=== PATIENT | female | born 1950 | race Caucasian/White ===

== ENCOUNTER → 2016-12-08 | Outpatient (CLI) | payer MEDICARE, OTHER ==
--- NOTE | 2016-12-09 08:12 | BD ---
EXAMINATION TYPE: MG DEXA axial skeleton. DATE OF EXAM: 12/08/2016 12:58 PM COMPARISON: DEXA bone scan report January 04, 2002. CLINICAL HISTORY: Postmenopausal female Height: 64.5 IN Weight: 176 LBS FRAX RISK QUESTIONS: Alcohol (3 or more units per day): NO Family History (Parent hip fracture): NO Glucocorticoids (More than 3mos): NO (Ex: prednisone, prednisolone, methylprednisolone, dexamethasone, and hydrocortisone). History of Fracture in Adulthood: NO Secondary Osteoporosis: 1. Type 1 Diabetes: NO 2. Hyperthyroidism: NO 3. Menopause before 45: NO 4. Malnutrition: NO 5. Chronic liver disease: NO Rheumatoid Arthritis: NO Current Tobacco Use: NO RISK FACTORS HISTORY OF: Active: YES Postmenopausal woman: AGE 47 MEDICATIONS: Thyroid Medications: YES Which medication: Levothyroxine How Lon YEARS Additional Medications: LEVOTHYROXINE, SIMVASTATIN, BLOOD PRESSURE MED EXAM MEASUREMENTS: Bone mineral densitometry was performed using the [employer] System. Bone mineral density as measured about the Lumbar spine is: ----- L1-L4(G/cm2): 1.402 T Score Values are as follows: ----- L2: 1.8 ----- L3: 2.6 ----- L4: 2.7 ----- L1-L4: 1.8 Bone mineral density has: Increased 11.2% since study of: 01/04/2002 Bone mineral density about the R hip (g/cm2): 0.958 Bone mineral density about the L hip (g/cm2): 0.974 T Score values are as follows: -----R Neck: -0.6 -----L Neck: -0.5 -----R Total: 0.3 -----L Total: 0.4 Bone mineral density has: Decreased -4.6% since study of: 01/04/2002 IMPRESSION: Normal (Values between +1 and -1 indicate normal bone mass). Consider repeating this study in 5 year s or sooner if there is some new clinical indication. NOTE: T-SCORE=SD OF THE YOUNG ADULT MEAN.
--- NOTE | 2016-12-09 11:14 | MM ---
Reason for exam: screening (asymptomatic). Last mammogram was performed 5 years and 11 months ago. History: Patient is postmenopausal. 3 cyst aspirations of the right breast. Physical Findings: A clinical breast exam by your physician is recommended on an annual basis and results should be correlated with mammographic findings. MG 3D Screening Mammo W/Cad Bilateral CC and MLO view(s) were taken. Prior study comparison: December 26, 2010, bilateral digital screening mammo w/CAD. The breast tissue is heterogeneously dense. This may lower the sensitivity of mammography. Finding: There are typically benign round calcifications in the right breast. There is no discrete abnormality. ASSESSMENT: Benign, BI-RAD 2 RECOMMENDATION: Routine screening mammogram of both breasts in 1 year.
== END | disposition home or self-care (01) ==
LOC: RADMAMWWP 12:51
PROVIDERS: ATTEND Internal Medicine Geriatric Medicine
DX: Z12.31 Encounter for screening mammogram for malignant neoplasm of breast (principal)
CPT/HCPCS: 77080; 77063; G0202

== ENCOUNTER → 2019-01-18 | Outpatient (CLI) | payer MEDICARE, OTHER ==
--- NOTE | 2019-01-19 13:31 | MM ---
Reason for exam: screening (asymptomatic). Last mammogram was performed 2 years and 1 month ago. History: Patient is postmenopausal. 3 cyst aspirations of the right breast. Physical Findings: A clinical breast exam by your physician is recommended on an annual basis and results should be correlated with mammographic findings. MG 3D Screening Mammo W/Cad Bilateral CC and MLO view(s) were taken. XCCM view(s) were taken of the right breast. Prior study comparison: December 08, 2016, bilateral MG 3d screening mammo w/cad. January 02, 2011, [facility] DIGITAL RIGHT MAMMOGRAM w/CAD. The breast tissue is heterogeneously dense. This may lower the sensitivity of mammography. Finding: There are typically benign calcifications in the right breast. No suspicious abnormality. No significant new finding when compared to prior studies. ASSESSMENT: Benign, BI-RAD 2 RECOMMENDATION: Routine screening mammogram of both breasts in 1 year.
== END | disposition home or self-care (01) ==
LOC: RADMAMWWP 10:44
PROVIDERS: ATTEND Internal Medicine Geriatric Medicine
DX: Z12.31 Encounter for screening mammogram for malignant neoplasm of breast (principal)
CPT/HCPCS: 77063; 77067

== ENCOUNTER → 2021-06-19 | Outpatient (CLI) | payer MEDICARE, OTHER ==
--- NOTE | 2021-06-20 11:52 | MM ---
Reason for exam: screening (asymptomatic). Last mammogram was performed 2 years and 5 months ago. History: Patient is postmenopausal. 3 cyst aspirations of the right breast. Physical Findings: A clinical breast exam by your physician is recommended on an annual basis and results should be correlated with mammographic findings. MG 3D Screening Mammo W/Cad Bilateral CC and MLO view(s) were taken. Prior study comparison: January 18, 2019, bilateral MG 3d screening mammo w/cad. December 08, 2016, bilateral MG 3d screening mammo w/cad. The breast tissue is heterogeneously dense. This may lower the sensitivity of mammography. There are benign appearing round vascular calcifications bilaterally. There is no discrete abnormality. ASSESSMENT: Benign, BI-RAD 2 RECOMMENDATION: Routine screening mammogram of both breasts in 1 year.
== END | disposition home or self-care (01) ==
LOC: RADMAMWWP 09:39
PROVIDERS: ATTEND Internal Medicine Geriatric Medicine
DX: Z12.31 Encounter for screening mammogram for malignant neoplasm of breast (principal); Z78.0 Asymptomatic menopausal state
CPT/HCPCS: 77063; 77067

== ENCOUNTER 2022-05-16 08:02 | Emergency (ER) | payer MEDICARE, OTHER ==
[2022-05-16 08:15] VITALS: TEMP 98.8
[2022-05-16] MEDS ORDERED: DIPH,PERTUS(ACELL)TETVAC-LF 0.5 ML VIAL IM ONE (08:57)
--- NOTE | 2022-05-16 08:59 | ED ---
General Adult HPI - General Source: patient, RN notes reviewed, old records reviewed Mode of arrival: ambulatory Limitations: no limitations <Henry Weeks - Last Filed: 05/16/22 10:54> <Selin Jacob - Last Filed: 05/16/22 11:09> - General Chief complaint: Fall Stated complaint: Fall,head injury Time Seen by Provider: 05/16/22 08:15 - History of Present Illness Initial comments: This is a 71-year-old female presents emergency Department complaining that she tripped over something at a construction site and hit her head on a step. Patient denies loss of consciousness. Patient denies being days. Patient states she had a little bit of a headache. Patient denies any neck pain. Patient denies numbness weakness. Patient has noted some ecchymosis to the medial aspect of her eyelids bilaterally. Patient does have a laceration on her forehead. Patient has not had a tetanus recently. (Henry Weeks) - Related Data Allergies Allergy/AdvReac Type Severity Reaction Status Date / Time No Known Allergies Allergy Verified 05/16/22 08:15 Review of Systems ROS Other: All systems not noted in ROS Statement are negative. <Henry Weeks - Last Filed: 05/16/22 10:54> ROS Other: All systems not noted in ROS Statement are negative. <Selin Jacob - Last Filed: 05/16/22 11:09> ROS Statement: Those systems with pertinent positive or pertinent negative responses have been documented in the HPI. Past Medical History Past Medical History: Hyperlipidemia, Hypertension, Thyroid Disorder History of Any Multi-Drug Resistant Organisms: None Reported Past Surgical History: No Surgical Hx Reported Smoking Status: Former smoker Past Alcohol Use History: Daily Past Drug Use History: None Reported <Henry Weeks - Last Filed: 05/16/22 10:54> General Exam Limitations: no limitations <Henry Weeks - Last Filed: 05/16/22 10:54> - General Exam Comments Initial Comments: GENERAL: Patient is well-developed and well-nourished. Patient is nontoxic and well- hydrated and is in no acute distress. ENT: Neck is soft and supple. No significant lymphadenopathy is noted. Oropharynx is clear. Moist mucous membranes. Neck has full range of motion without eliciting any pain. EYES: The sclera were anicteric and conjunctiva were pink and moist. Extraocular movements were intact and pupils were equal round and reactive to light. Eyelids were unremarkable. CARDIOVASCULAR: There is no chest tenderness. ABDOMEN: Soft and nontender with normal bowel sounds. SKIN: Skin is clear with no lesions or rashes and otherwise unremarkable. NEUROLOGIC: Patient is alert and oriented x3. Cranial nerves II through XII are grossly intact. Motor and sensory are also intact. Normal speech, volume and content. Symmetrical smile. MUSCULOSKELETAL: Normal extremities with adequate strength and full range of motion. Left knee has a very small contusion but she does have full range of motion is not painful. LYMPHATICS: No significant lymphadenopathy is noted PSYCHIATRIC: Normal psychiatric evaluation. (Henry Weeks) Course Vital Signs 05/16/22 05/16/22 08:12 09:59 Temperature 98.8 F Pulse Rate 80 68 Respiratory 20 16 Rate Blood Pressure 170/93 145/68 O2 Sat by Pulse 97 98 Oximetry Procedures - Laceration Laceration #1 Consent Obtained: verbal consent Site: other (forehead) Size (cm): 2 Description: irregular Depth: simple, single layer Anesthetic Used: lidocaine 1% Anesthesia Technique: local infiltration Pre-repair: wound explored, irrigated extensively Type of Sutures: nylon Size of Sutures: 6-0 Number of Sutures: 3 Technique: simple, interrupted Patient Tolerated Procedure: well, no complications <Selin Jacob - Last Filed: 05/16/22 11:09> Medical Decision Making <Henry Weeks - Last Filed: 05/16/22 10:54> - Medical Decision Making CT of the brain and C-spine showed no acute abnormality. Patient's forehead was sutured. (Henry Weeks) Disposition Is patient prescribed a controlled substance at d/c from ED?: No Time of Disposition: 10:55 <Henry Weeks - Last Filed: 05/16/22 10:54> <Selin Jacob - Last Filed: 05/16/22 11:09> Clinical Impression: Fall, Forehead laceration Disposition: HOME SELF-CARE Condition: Good Instructions (If sedation given, give patient instructions): Fall Prevention for Older Adults (ED), Head Laceration (ED) Additional Instructions: Sutures should be removed in 5 days Referrals: Fermin Whitley MD [Primary Care Provider] - 1-2 days
--- NOTE | 2022-05-16 09:38 | CT ---
EXAMINATION TYPE: CT brain cspine wo con CT DLP: 1367.4 mGycm, Automated exposure control for dose reduction was used. DATE OF EXAM: 05/16/2022 9:20 AM COMPARISON: None. CLINICAL INDICATION:Female, 71 years old with history of Trauma; Fall, head injury TECHNIQUE: Brain: Multiple axial CT images of the brain were obtained without IV contrast. Cspine: Axial CT images from the skull base to the inferior aspect of T2 we obtained without intraven ous contrast. Coronal and sagittal reformatted images were also reviewed. FINDINGS: Brain: Extra-axial spaces: No abnormal extra-axial fluid collections. Ventricular system: Within normal limits Cerebral parenchyma: No acute intraparenchymal hemorrhage or mass effect. The champion-white junction is well differentiated. Cerebellum: Unremarkable. Mass effect: No evidence of midline shift. Intracranial vasculature: Atherosclerotic calcifications of the intracranial vessels. Soft tissues: Foci of gas and soft tissue edema involving the nasal soft tissues. Calvarium/osseous structures: No depressed skull fracture. Paranasal sinuses and mastoid air cells: Mild scattered mucosal thickening and or secretions. Visualized orbits: Orbital contents are intact. Cervical spine: Fracture: None. Osseous structures: Unremarkable Vertebral alignment: Grade 1 anterolisthesis of L3 on L4 likely due to degenerative changes. Straight ening of the cervical spine which may be due to patient position versus muscle spasm. Spinal canal/Neural Foramina: Disc osteophyte complexes at C4-C5 and C6-C7 with at least mild spinal canal stenosis. Facet joint uncovertebral joint arthropathy scattered throughout the cervical spine w ith varying degrees of neural foraminal stenosis. Neck soft tissues: Prevertebral soft tissues are within normal limits. Other: The airway is patent. Biapical pleural-parenchymal scarring. Vascular sclerosis. IMPRESSION: 1. No acute intracranial process. 2. Foci of gas and soft tissue edema involving the nasal soft tissues consistent with laceration. 3. No evidence of cervical spine fracture. 4. Mild multilevel degenerative disc disease.
[2022-05-16 10:01] VITALS: BP 145/68; PULSE 68; RESP 16
[2022-05-16] MEDS ORDERED: LIDOCAINE 1% INJ 10MG/ML (20 ML MDV) SQ ONE (10:08)
[2022-05-16] MEDS ORDERED: ACETAMINOPHEN TAB 500 MG TAB PO STA (10:10)
== END 2022-05-16 21:57 | disposition home or self-care (01) ==
LOC: EC 08:02
DX: S01.81XA Laceration without foreign body of other part of head, initial encounter (principal); E78.5 Hyperlipidemia, unspecified; I10 Essential (primary) hypertension; Z87.891 Personal history of nicotine dependence; Z23 Encounter for immunization; W01.0XXA Fall on same level from slipping, tripping and stumbling without subsequent striking against object, initial encounter
CPT/HCPCS: 72125; 70450; 90715; 12011; 90471; 99284; J2001

== ENCOUNTER → 2022-06-20 | Outpatient (CLI) | payer MEDICARE, OTHER ==
--- NOTE | 2022-06-20 09:53 | BD ---
EXAMINATION TYPE: Axial Bone Density DATE OF EXAM: 06/20/2022 COMPARISON: 12/08/2016 CLINICAL HISTORY: 72 years year old Female. ICD-10 CODE: M810 OSTEOPOROSIS Height: 64 IN Weight: 173 LBS RISK FACTORS HISTORY OF: Active: YES Postmenopausal woman: AGE 46 MEDICATIONS: Thyroid Medications: YES Which medication: Levothyroxine How Lon+ YEARS Additional Medications: VIT D, LEVOTHYROXINE, LOSARTAN, SIMVASTATIN, EXAM MEASUREMENTS: Bone mineral densitometry was performed using the [employer] System. Bone mineral density as measured about the Lumbar spine is: ----- L1-L4(G/cm2): 1.479 T Score Values are as follows: ----- L1: -0.2 ----- L2: 0.9 ----- L3: 4.7 ----- L4: 4.2 ----- L1-L4: 2.5 Bone mineral density has: Increased 7.3% since study of: 12/08/2016 Bone mineral density about the R hip (g/cm2): 0.891 Bone mineral density about the L hip (g/cm2): 0.939 T Score values are as follows: -----R Neck: -1.1 -----L Neck: -0.7 -----R Total: -0.3 -----L Total: 0.1 Bone mineral density has: Decreased -5.3% since study of: 12/08/2016 FRAX%s: The graph provided illustrates a 9.5 chance for a major osteoporotic fx and a 1.3 chance for the hips probability for fx in 10 years time. IMPRESSION: Normal (Values between +1 and -1 indicate normal bone mass). Consider repeating this study in 5 year s or sooner if there is some new clinical indication. NOTE: T-SCORE=SD OF THE YOUNG ADULT MEAN.
--- NOTE | 2022-06-23 08:31 | MM ---
Reason for Exam: Screening (asymptomatic). Last screening mammogram was performed 12 month(s) ago. Patient History: Menarche at age 11. First Full-Term at age 21. Postmenopausal. Cyst Aspiration on the Right side. Cyst Aspiration on the Right side. Cyst Aspiration on the Right side. Risk Values: Emiliana 5 year model risk: 1.6%. NCI Lifetime model risk: 3.7%. Prior Study Comparison: 12/08/2016 Bilateral Screening Mammogram, [facility]. 01/18/2019 Bilateral Screening Mammogram, [facility]. 06/19/2021 Bilateral Screening Mammogram, [facility]. Tissue Density: The breast tissue is heterogeneously dense. This may lower the sensitivity of mammography. Findings: Analyzed By CAD. There are a few benign-appearing round calcifications throughout the right breast redemonstrated. Focal vascular calcification in the left breast is again seen. Benign-appearing right axillary lymph nodes redemonstrated. There is no suspicious new group of microcalcifications or new suspicious mass in either breast. Overall Assessment: Benign, BI-RAD 2 Management: Screening Mammogram of both breasts in 1 year. A clinical breast exam by your physician is recommended on an annual basis and results should be correlated with mammographic findings. Electronically signed and approved by: Yuriy Cortez M.D.
== END | disposition home or self-care (01) ==
LOC: RADMAMWWP 09:08
PROVIDERS: ATTEND Internal Medicine Geriatric Medicine
DX: Z12.31 Encounter for screening mammogram for malignant neoplasm of breast (principal); Z78.0 Asymptomatic menopausal state
CPT/HCPCS: 77063; 77067; 77080

== ENCOUNTER → 2023-07-03 | Outpatient (CLI) | payer MEDICARE, OTHER ==
--- NOTE | 2023-07-06 07:45 | MM ---
Reason for Exam: Screening (asymptomatic). Last screening mammogram was performed 12 month(s) ago. Patient History: Menarche at age 11. First Full-Term at age 21. Postmenopausal. Patient has history of breast feeding. Cyst Aspiration on the Right side. Cyst Aspiration on the Right side. Cyst Aspiration on the Right side. Risk Values: Emiliana 5 year model risk: 1.6%. NCI Lifetime model risk: 3.4%. Prior Study Comparison: 01/18/2019 Bilateral Screening Mammogram, [facility]. 06/19/2021 Bilateral Screening Mammogram, [facility]. 06/20/2022 Bilateral MG 3D screening mammo w/cad, [facility]. Tissue Density: The breast tissue is heterogeneously dense. This may lower the sensitivity of mammography. Findings: Analyzed By CAD. There is no suspicious group of microcalcifications or new suspicious mass. Benign-appearing calcifications bilaterally. Overall Assessment: Benign, BI-RAD 2 Management: Screening Mammogram of both breasts in [address] [facility] will attempt to contact patient to return for supplemental views and ultrasound if indicated. Patient should continue monthly self-breast exams. A clinical breast exam by your physician is recommended on an annual basis. This exam should not preclude additional follow-up of suspicious palpable abnormalities. Note on Emiliana scores and lifetime risk: 1. A Emiliana score greater than 3% is considered moderate risk. If this is the case, consider specialist referral to assess eligibility for a risk reducing agent. 2. If overall lifetime risk for the development of breast cancer is 20% or higher, the patient may qualify for future screening with alternating mammogram and breast MRI. Electronically signed and approved by: Joseph Anglin DO
== END | disposition home or self-care (01) ==
LOC: RADMAMWWP 09:16
PROVIDERS: ATTEND Internal Medicine Geriatric Medicine
DX: Z12.31 Encounter for screening mammogram for malignant neoplasm of breast (principal); Z78.0 Asymptomatic menopausal state
CPT/HCPCS: 77063; 77067

== ENCOUNTER → 2024-07-04 | Outpatient (CLI) | payer MEDICARE ==
--- NOTE | 2024-07-05 19:03 | MM ---
Reason for Exam: Screening (asymptomatic). Last screening mammogram was performed 12 month(s) ago. Patient History: Menarche at age 11. First Full-Term at age 21. Postmenopausal. Patient has history of breast feeding. Cyst Aspiration on the Right side. Cyst Aspiration on the Right side. Cyst Aspiration on the Right side. Risk Values: Emiliana 5 year model risk: 1.6%. NCI Lifetime model risk: 3.2%. Prior Study Comparison: 06/19/2021 Bilateral Screening Mammogram, [facility]. 06/20/2022 Bilateral MG 3D screening mammo w/cad, [facility]. 07/03/2023 Bilateral MG 3D screening mammo w/cad, [facility]. Tissue Density: The breasts are heterogeneously dense, which may obscure small masses. Findings: Analyzed By CAD. Areas of asymmetric density on the right are unchanged. There is no suspicious group of microcalcifications or new suspicious mass in either breast. Overall Assessment: Benign, BI-RAD 2 Management: Screening Mammogram of both breasts in 1 year. . Patient should continue monthly self-breast exams. A clinical breast exam by your physician is recommended on an annual basis. This exam should not preclude additional follow-up of suspicious palpable abnormalities. Note on Emiliana scores and lifetime risk: 1. A Emiliana score greater than 3% is considered moderate risk. If this is the case, consider specialist referral to assess eligibility for a risk reducing agent. 2. If overall lifetime risk for the development of breast cancer is 20% or higher, the patient may qualify for future screening with alternating mammogram and breast MRI. [facility], , 07/05/2024 6:59 PM. Electronically signed and approved by: Cassandra Neal M.D. Radiologist
== END | disposition home or self-care (01) ==
LOC: RADMAMWWP 10:11
PROVIDERS: ATTEND Internal Medicine Geriatric Medicine
DX: Z12.31 Encounter for screening mammogram for malignant neoplasm of breast (principal); Z78.0 Asymptomatic menopausal state; R92.333 Mammographic heterogeneous density, bilateral breasts
CPT/HCPCS: 77063; 77067